=== PATIENT | female | born 1955 | race Caucasian/White ===

== ENCOUNTER 2024-02-04 17:47 | Inpatient (IN) | payer OTHER ==
[2024-02-04 18:18] VITALS: BMI 16.5
[2024-02-04] MEDS ORDERED: ALBUTEROL SO4 2.5/IPRATROPIUM 0.5 INH SOL 3 ML VIAL.NEB. NEB ONE (19:18)
[2024-02-04 19:22] LABS: VENOUS BASE EXCESS 0.9 mmol/L (-2-2); VENOUS O2 SATURATION 69.4 % (70-80); VENOUS PCO2 40.2 mmHg (38-52); VENOUS PH 7.419 (7.310-7.410)
[2024-02-04] MEDS ORDERED: NITROGLYCERIN 25MG/D5W 250ML 25 MG/250 ML ML IVPB ONE (19:26)
[2024-02-04 19:27] LABS: BASO % 0.9 % (0-2.0); EOS % 0.1 % (0-4.5); HEMATOCRIT 40.3 % (32.4-45.2); HEMOGLOBIN 13.5 GM/dL (10.7-15.3); MCHC 33.6 g/dl (32.0-36.0); MEAN PLT VOLUME 7.4 fl (7.5-11.1); MONO % 6.6 % (3.8-10.2); NEUT % 83.4 % (42.8-82.8); PLATELET COUNT 131 10^3/uL (134-434); RBC 3.87 M/mm3 (3.60-5.2); RDW 17.4 % (11.6-15.6); WHITE BLOOD COUNT 9.2 K/mm3 (4.0-10.0)
[2024-02-04 19:41] LABS: PROTHROMBIN TIME (PATIENT) 11.5 SEC (9.7-13.0)
[2024-02-04 19:44] LABS: ACTIVATED PTT 28.7 SECONDS (25.2-36.5)
[2024-02-04] MEDS ORDERED: NITROGLYCERIN 50MG/D5W 250ML 50 MG/250 ML ML IVPB SCH (19:45)
[2024-02-04] MEDS: NITROGLYCERIN 50MG/D5W 250ML 50 MG/250 ML ML IVPB SCH (19:45)
[2024-02-04] MEDS: ALBUTEROL SO4 2.5/IPRATROPIUM 0.5 INH SOL 3 ML VIAL.NEB. NEB SCH (19:45)
[2024-02-04] MEDS: predniSONE 20 MG TABLET (UD) PO ONE (19:45)
[2024-02-04 19:49] LABS: POTASSIUM 4.6 mmol/L (3.5-5.1)
[2024-02-04 19:51] LABS: ALBUMIN 3.8 g/dl (3.4-5.0); CALCIUM 9.3 mg/dL (8.5-10.1); MAGNESIUM 1.9 mg/dL (1.8-2.4)
[2024-02-04 19:52] LABS: BLOOD UREA NITROGEN 57.3 mg/dL (7-18)
[2024-02-04 19:55] LABS: CREATININE 4.6 mg/dL (0.55-1.3); PHOSPHOROUS 4.5 mg/dL (2.5-4.9)
[2024-02-04 19:56] LABS: BILIRUBIN,TOTAL 0.8 mg/dL (0.2-1); TOT PROT 7.8 g/dl (6.4-8.2)
[2024-02-04 20:18] LABS: N-TERMINAL BNP 159788.7 pg/ml (5-125)
[2024-02-04] MEDS ORDERED: SODIUM CHLORIDE 250 ML IV PRN (20:39)
[2024-02-04] MEDS ORDERED: morphine SULFATE 4 MG/ML VIAL ONE (21:02)
[2024-02-04] MEDS: morphine SULFATE (PF) 1 MG/2 ML SYRINGE EP ONE (21:57)
[2024-02-04] MEDS: MORPHINE SULFATE 2 MG/ML SYRINGE IVPUSH ONE (21:58)
[2024-02-04 22:26] LABS: EPI CELLS >36 /uL (0-25.1); HYALINE CASTS 4 /uL (0-3.1); URINE APPEARANCE CLEAR; URINE BACTERIA 29 /uL (0-1359); URINE BILIRUBIN NEGATIVE (NEGATIVE); URINE COLOR DK YELLOW; URINE GLUCOSE (UA) NEGATIVE (NEGATIVE); URINE KETONE TRACE (NEGATIVE); URINE LEUK ESTERASE 2+ (NEGATIVE); URINE NITRITE NEGATIVE (NEGATIVE); URINE PROTEIN 2+ (NEGATIVE); URINE RBC 26 /uL (0-23.9); URINE UROBILINOGEN 0.2 mg/dL (0.2-1.0); URINE WBC 426 /uL (0-25.8)
[2024-02-04] MEDS: MUPIROCIN 2% TOPICAL OINTMENT FOR DECOLONIZATION NS SCH (23:03)
[2024-02-04] MEDS: HYDROmorphone HCL CARPU-JECT 2 MG/1 ML DISP.SYRIN IVPUSH ONE (23:04)
[2024-02-05] MEDS: NITROGLYCERIN 50MG/D5W 250ML 50 MG/250 ML ML IVPB SCH (03:00)
[2024-02-05 06:29] LABS: ARTERIAL BLD GAS O2 SATURATION 98.4 % (95-98); ARTERIAL BLOOD GAS BASE EXCESS 4.7 mmol/L (-2-2); ARTERIAL BLOOD GAS PO2 117.7 mmHg (80-100); ARTERIAL BLOOD GAS pH 7.451 (7.350-7.450)
[2024-02-05 06:31] LABS: ALLENS TEST POSITIVE; VENT MODE S/T; VENT RATE 16
[2024-02-05 06:41] LABS: BASO % 0.6 % (0-2.0); EOS % 0.7 % (0-4.5); HEMATOCRIT 35.5 % (32.4-45.2); LYMPH % 14.5 % (8-40); MCH 35.1 pg (25.7-33.7); MCHC 33.9 g/dl (32.0-36.0); MEAN CELL VOLUME 103.5 fl (80-96); MONO % 6.9 % (3.8-10.2); NEUT % 77.3 % (42.8-82.8); PLATELET COUNT 119 10^3/uL (134-434); RBC 3.43 M/mm3 (3.60-5.2); RDW 17.5 % (11.6-15.6); WHITE BLOOD COUNT 6.5 K/mm3 (4.0-10.0)
[2024-02-05 06:45] LABS: INR 1.01 (0.83-1.09); PROTHROMBIN TIME (PATIENT) 11.6 SEC (9.7-13.0)
[2024-02-05 06:48] LABS: ACTIVATED PTT 30.2 SECONDS (25.2-36.5)
[2024-02-05 06:49] LABS: CHLORIDE 102 mmol/L (98-107); POTASSIUM 3.4 mmol/L (3.5-5.1); SODIUM 140 mmol/L (136-145)
[2024-02-05 06:56] LABS: CALCIUM 8.4 mg/dL (8.5-10.1)
[2024-02-05 06:57] LABS: ALBUMIN 3.2 g/dl (3.4-5.0); ANION GAP 5 mmol/L (4-13); CO2 33 mmol/L (21-32); GLUCOSE,RANDOM 94 mg/dL (74-106); MAGNESIUM 1.7 mg/dL (1.8-2.4)
[2024-02-05 07:00] LABS: BILIRUBIN,TOTAL 0.7 mg/dL (0.2-1); CREATININE 3.1 mg/dL (0.55-1.3); PHOSPHOROUS 3.2 mg/dL (2.5-4.9); SGOT/AST 12 U/L (15-37); SGPT/ALT 10 U/L (13-61)
[2024-02-05 07:01] LABS: ALK PHOS 110 U/L (45-117)
[2024-02-05 07:02] LABS: TOT PROT 6.7 g/dl (6.4-8.2)
[2024-02-05 07:24] LABS: BLOOD UREA NITROGEN 31.1 mg/dL (7-18); N-TERMINAL BNP > 175000.0 pg/ml (5-125)
[2024-02-05] MEDS: TRIMETHOBENZAMIDE HCL 200MG/2ML INJ IM PRN (09:06)
[2024-02-05] MEDS: PIPERACILLIN/TAZOB 4.5 GM 4.5 GM in DEXTROSE 5%-WATER 100 ML IVPB SCH (10:05)
[2024-02-05] MEDS: HEPARIN NA (PORCINE) 5,000 UNITS/ML 1ML VIAL SQ SCH (10:06)
[2024-02-05] MEDS: PANTOPRAZOLE SODIUM 40 MG VIAL IVPUSH SCH (10:06)
[2024-02-05] MEDS: VANCOMYCIN/WATER FOR INJ (PEG) 1,000 MG/200 ML BAG IVPB ONE (10:06)
[2024-02-05] MEDS ORDERED: SODIUM CHLORIDE 250 ML IV PRN (12:37)
[2024-02-05] MEDS ORDERED: ACETAMINOPHEN 325 MG TABLET (FP) PO PRN (14:02)
[2024-02-05] MEDS: amLODIPine BESYLATE 10 MG TABLET (FP) PO ONE (16:59)
[2024-02-05] MEDS: SEVELAMER CARBONATE 800 MG TAB (FP) PO SCH (16:59)
[2024-02-05] MEDS: LOSARTAN POTASSIUM 50 MG TABLET PO ONE (16:59)
[2024-02-05] MEDS: DONEPEZIL HCL 10 MG TABLET (FP) PO SCH (16:59)
[2024-02-05] MEDS: POTASSIUM CHLORIDE ORAL LIQUID 20 MEQ/15 ML PO ONE (18:04)
[2024-02-05] MEDS: MAGNESIUM 2GM/50ML STERILE WATER IVPB IVPB ONE (18:04)
[2024-02-05] MEDS: SERTRALINE HCL 50 MG TABLET (FP) PO SCH (21:16)
[2024-02-05] MEDS: levETIRAcetam 500 MG TABLET (FP) PO SCH (21:16)
[2024-02-05] MEDS: BUDESONIDE/FORMOTEROL FUMARATE 160-4.5 MCG (10.3 GM INHALER) IH SCH (21:16)
[2024-02-05] MEDS: CARVEDILOL 12.5 MG TABLET (FP) PO SCH (21:16)
[2024-02-05] MEDS: FERROUS SO4 325 MG TABLET (FP) PO SCH (21:16)
[2024-02-05] MEDS: ATORVASTATIN CA 20 MG TABLET (FP) PO SCH (21:16)
[2024-02-05] MEDS: MELATONIN 1 MG TABLET PO SCH (21:16)
[2024-02-05] MEDS: LIDOCAINE PATCH REMOVAL MC SCH (21:17)
[2024-02-05] MEDS: CHLORHEXIDINE GLUCONATE 4% CLEANSER FOR DECOLONIZATION TP SCH (21:17)
[2024-02-05] MEDS ORDERED: PATIENT'S OWN MEDICATION (NON-FORMULARY) (Fluticasone Propion/Salmeterol [Fluticasone-Salm IH SCH (22:00)
[2024-02-06 07:33] LABS: BASO % 0.6 % (0-2.0); EOS % 1.2 % (0-4.5); HEMATOCRIT 35.3 % (32.4-45.2); HEMOGLOBIN 11.9 GM/dL (10.7-15.3); LYMPH % 19.4 % (8-40); MCH 34.9 pg (25.7-33.7); MCHC 33.8 g/dl (32.0-36.0); MEAN CELL VOLUME 103.2 fl (80-96); MEAN PLT VOLUME 7.4 fl (7.5-11.1); MONO % 9.7 % (3.8-10.2); NEUT % 69.1 % (42.8-82.8); PLATELET COUNT 116 10^3/uL (134-434); RBC 3.42 M/mm3 (3.60-5.2); RDW 17.1 % (11.6-15.6); WHITE BLOOD COUNT 5.1 K/mm3 (4.0-10.0)
[2024-02-06 07:38] LABS: POTASSIUM 3.9 mmol/L (3.5-5.1)
[2024-02-06 07:41] LABS: CALCIUM 8.5 mg/dL (8.5-10.1)
[2024-02-06 07:42] LABS: ALBUMIN 3.2 g/dl (3.4-5.0); BLOOD UREA NITROGEN 27.3 mg/dL (7-18); MAGNESIUM 2.6 mg/dL (1.8-2.4)
[2024-02-06 07:45] LABS: CREATININE 2.8 mg/dL (0.55-1.3); PHOSPHOROUS 2.7 mg/dL (2.5-4.9)
[2024-02-06 07:47] LABS: BILIRUBIN,TOTAL 1.1 mg/dL (0.2-1); TOT PROT 6.6 g/dl (6.4-8.2)
[2024-02-06] MEDS: LOSARTAN POTASSIUM 50 MG TABLET PO SCH (09:48)
[2024-02-06] MEDS: VITAMIN B COMPLEX W/C COMBO TABLET (FP) PO SCH (09:48)
[2024-02-06] MEDS: PANTOPRAZOLE 40 MG TABLET PO SCH (09:48)
[2024-02-06] MEDS: amLODIPine BESYLATE 10 MG TABLET (FP) PO SCH (09:49)
[2024-02-06] MEDS: TIOTROPIUM BROMIDE 2.5 MCG (SPIRIVA) RESPIMAT INHALER IH SCH (09:49)
[2024-02-06] MEDS: LIDOCAINE 4% PATCH TP SCH (09:50)
[2024-02-06] MEDS: HYDROCORTISONE 2.5% TOPICAL CREAM 30 GM TUBE RC SCH (09:51)
[2024-02-06] MEDS ORDERED: PATIENT'S OWN MEDICATION (NON-FORMULARY) (Umeclidinium Bromide [Incruse Ellipta] 62.5 MCG IH SCH (10:00)
[2024-02-06] MEDS ORDERED: SODIUM CHLORIDE 250 ML IV PRN ×2 (12:54→18:33)
[2024-02-06] MEDS: FUROSEMIDE 40 MG/4 ML INJECTABLE VIAL IVPUSH ONE (14:06)
[2024-02-06] MEDS ORDERED: TRIMETHOBENZAMIDE HCL 200MG/2ML INJ IM PRN (18:33)
[2024-02-06] MEDS: NITROGLYCERIN 50MG/D5W 250ML 50 MG/250 ML ML IVPB SCH (18:54)
[2024-02-06] MEDS: ISOSORBIDE DINITRATE 40 MG PO SCH (18:55)
[2024-02-06] MEDS: PIPERACILLIN/TAZOB 4.5 GM 4.5 GM in DEXTROSE 5%-WATER 100 ML IVPB SCH (18:57)
[2024-02-06] MEDS ORDERED: MUPIROCIN 2% TOPICAL OINTMENT FOR DECOLONIZATION NS SCH (22:00)
[2024-02-06] MEDS ORDERED: hydrALAZINE HCL 25 MG TABLET (FP) PO SCH (22:00)
[2024-02-06] MEDS ORDERED: CHLORHEXIDINE GLUCONATE 4% CLEANSER FOR DECOLONIZATION TP SCH (22:00)
[2024-02-06] MEDS: MELATONIN 1 MG TABLET PO SCH (22:04)
[2024-02-06] MEDS: SERTRALINE HCL 50 MG TABLET (FP) PO SCH (22:04)
[2024-02-06] MEDS: CARVEDILOL 12.5 MG TABLET (FP) PO SCH (22:05)
[2024-02-06] MEDS: ATORVASTATIN CA 20 MG TABLET (FP) PO SCH (22:05)
[2024-02-06] MEDS: FERROUS SO4 325 MG TABLET (FP) PO SCH (22:05)
[2024-02-06] MEDS: hydrALAZINE HCL 25 MG TABLET (FP) PO SCH (22:06)
[2024-02-06] MEDS: HEPARIN NA (PORCINE) 5,000 UNITS/ML 1ML VIAL SQ SCH (22:07)
[2024-02-06] MEDS: levETIRAcetam 500 MG TABLET (FP) PO SCH (22:07)
[2024-02-06] MEDS: LIDOCAINE PATCH REMOVAL MC SCH (22:12)
[2024-02-06] MEDS: BUDESONIDE/FORMOTEROL FUMARATE 160-4.5 MCG (10.3 GM INHALER) IH SCH (22:13)
[2024-02-07 09:17] LABS: BASO % 0.6 % (0-2.0); EOS % 1.3 % (0-4.5); HEMATOCRIT 38.1 % (32.4-45.2); MCH 35.1 pg (25.7-33.7); MCHC 34.2 g/dl (32.0-36.0); MEAN CELL VOLUME 102.6 fl (80-96); MEAN PLT VOLUME 7.2 fl (7.5-11.1); MONO % 8.7 % (3.8-10.2); NEUT % 71.4 % (42.8-82.8); PLATELET COUNT 128 10^3/uL (134-434); RBC 3.71 M/mm3 (3.60-5.2); RDW 17.1 % (11.6-15.6); WHITE BLOOD COUNT 5.4 K/mm3 (4.0-10.0)
[2024-02-07 09:32] LABS: MAGNESIUM 2.6 mg/dL (1.8-2.4)
[2024-02-07 09:36] LABS: PHOSPHOROUS 3.4 mg/dL (2.5-4.9)
[2024-02-07] MEDS: SEVELAMER CARBONATE 800 MG TAB (FP) PO SCH (09:53)
[2024-02-07] MEDS: amLODIPine BESYLATE 10 MG TABLET (FP) PO SCH (09:54)
[2024-02-07] MEDS: LOSARTAN POTASSIUM 50 MG TABLET PO SCH (09:54)
[2024-02-07] MEDS: PANTOPRAZOLE 40 MG TABLET PO SCH (09:54)
[2024-02-07] MEDS: VITAMIN B COMPLEX W/C COMBO TABLET (FP) PO SCH (09:59)
[2024-02-07] MEDS: LIDOCAINE 4% PATCH TP SCH (10:00)
[2024-02-07] MEDS ORDERED: ISOSORBIDE DINITRATE 40 MG PO SCH (10:00)
[2024-02-07] MEDS: TIOTROPIUM BROMIDE 2.5 MCG (SPIRIVA) RESPIMAT INHALER IH SCH (11:07)
[2024-02-07] MEDS: HYDROCORTISONE 2.5% TOPICAL CREAM 30 GM TUBE RC SCH (11:07)
[2024-02-07] MEDS: BUDESONIDE/FORMETEROL FUMARATE 160/4.5 mcg INHALER IH SCH (12:13)
[2024-02-07 13:55] LABS: POTASSIUM 3.7 mmol/L (3.5-5.1)
[2024-02-07 13:58] LABS: ALBUMIN 2.7 g/dl (3.4-5.0); BLOOD UREA NITROGEN 51.3 mg/dL (7-18)
[2024-02-07 14:02] LABS: BILIRUBIN,TOTAL 0.4 mg/dL (0.2-1); TOT PROT 5.8 g/dl (6.4-8.2)
[2024-02-07] MEDS: ISOSORBIDE DINITRATE 10 MG TABLET PO SCH ×2 (15:36→15:37)
[2024-02-07] MEDS: DONEPEZIL HCL 10 MG TABLET (FP) PO SCH (16:52)
[2024-02-07] MEDS: ACETAMINOPHEN 325 MG TABLET (FP) PO PRN (17:58)
[2024-02-08 07:52] LABS: BASO % 0.8 % (0-2.0); EOS % 1.5 % (0-4.5); HEMATOCRIT 38.7 % (32.4-45.2); LYMPH % 18.6 % (8-40); MCH 34.6 pg (25.7-33.7); MCHC 33.5 g/dl (32.0-36.0); MEAN CELL VOLUME 103.4 fl (80-96); MEAN PLT VOLUME 7.2 fl (7.5-11.1); NEUT % 69.1 % (42.8-82.8); PLATELET COUNT 123 10^3/uL (134-434); RBC 3.74 M/mm3 (3.60-5.2); RDW 16.8 % (11.6-15.6); WHITE BLOOD COUNT 5.2 K/mm3 (4.0-10.0)
[2024-02-08 08:13] LABS: POTASSIUM 3.6 mmol/L (3.5-5.1)
[2024-02-08 08:19] LABS: CALCIUM 9.1 mg/dL (8.5-10.1); MAGNESIUM 2.1 mg/dL (1.8-2.4)
[2024-02-08 08:20] LABS: BLOOD UREA NITROGEN 34.6 mg/dL (7-18)
[2024-02-08 08:22] LABS: BILIRUBIN,TOTAL 0.5 mg/dL (0.2-1); CREATININE 3.5 mg/dL (0.55-1.3); TOT PROT 6.9 g/dl (6.4-8.2)
[2024-02-08 08:23] LABS: ALBUMIN 3.4 g/dl (3.4-5.0)
[2024-02-08] MEDS: FUROSEMIDE 40 MG/4 ML INJECTABLE VIAL IVPUSH ONE (14:13)
[2024-02-09 08:39] LABS: BASO % 1.1 % (0-2.0); HEMATOCRIT 37.1 % (32.4-45.2); HEMOGLOBIN 12.5 GM/dL (10.7-15.3); LYMPH % 20.2 % (8-40); MCH 34.7 pg (25.7-33.7); MCHC 33.7 g/dl (32.0-36.0); MEAN CELL VOLUME 102.9 fl (80-96); MEAN PLT VOLUME 7.2 fl (7.5-11.1); NEUT % 68.7 % (42.8-82.8); PLATELET COUNT 134 10^3/uL (134-434); RDW 16.5 % (11.6-15.6); WHITE BLOOD COUNT 4.5 K/mm3 (4.0-10.0)
[2024-02-09 08:57] LABS: ALBUMIN 3.3 g/dl (3.4-5.0); BLOOD UREA NITROGEN 56.3 mg/dL (7-18); CALCIUM 8.8 mg/dL (8.5-10.1); MAGNESIUM 2.2 mg/dL (1.8-2.4)
[2024-02-09 09:01] LABS: BILIRUBIN,TOTAL 0.4 mg/dL (0.2-1)
[2024-02-09] MEDS ORDERED: SODIUM CHLORIDE 250 ML IV PRN (10:33)
[2024-02-11 12:35] VITALS: RESP 20
[2024-02-11 16:53] VITALS: BP 133/62; PULSE 85; TEMP 98.2
== END 2024-02-11 19:01 | DRG 291 ==
LOC: JER 17:47 → JERBED 20:44 → JICU 22:39 → J8W 02-06 18:28
PROVIDERS: ADMIT Internal Medicine Pulmonary Disease; ATTEND Nurse Practitioner Family
PROC: 5A1D70Z Performance of Urinary Filtration, Intermittent, Less than 6 Hours Per Day (ICD-10-PCS; principal; 2024-02-09)
DX: I13.2 Hypertensive heart and chronic kidney disease with heart failure and with stage 5 chronic kidney disease, or end stage renal disease (principal); I50.23 Acute on chronic systolic (congestive) heart failure; J18.9 Pneumonia, unspecified organism; J81.0 Acute pulmonary edema; J96.21 Acute and chronic respiratory failure with hypoxia; N18.6 End stage renal disease; I16.1 Hypertensive emergency; J90 Pleural effusion, not elsewhere classified; J98.11 Atelectasis; J44.0 Chronic obstructive pulmonary disease with (acute) lower respiratory infection; Z68.1 Body mass index [BMI] 19.9 or less, adult; R64 Cachexia; F03.90 Unspecified dementia, unspecified severity, without behavioral disturbance, psychotic disturbance, mood disturbance, and anxiety; I73.9 Peripheral vascular disease, unspecified; E78.5 Hyperlipidemia, unspecified; E87.70 Fluid overload, unspecified; I27.20 Pulmonary hypertension, unspecified; G40.909 Epilepsy, unspecified, not intractable, without status epilepticus; I08.1 Rheumatic disorders of both mitral and tricuspid valves; D69.6 Thrombocytopenia, unspecified; I25.10 Atherosclerotic heart disease of native coronary artery without angina pectoris; Z99.2 Dependence on renal dialysis; K21.9 Gastro-esophageal reflux disease without esophagitis
CPT/HCPCS: 0241U-QW; 36415; 36600; 71045-TC-FY; 71250-TC; 76641-TC-50; 77066-TC; 80053; 81003; 82308; 82550; 82803; 82962; 83036; 83690; 83735; 83880; 84100; 84436; 84443; 84484; 85025; 85027; 85379; 85610; 85730; 86704; 86705; 86803; 86850; 86900; 86901; 87040; 87086; 87340; 87517; 87522; 87635; 93005; 93010; 93306-TC; 94660; 94761; 97116-GP; 97162-GP; 99291; G0279-TC; J1644